=== PATIENT | female | born 1965 | race Caucasian/White ===

== ENCOUNTER → 2016-11-17 | Outpatient (CLI) | payer OTHER ==
[~2016-11-17] MED LIST: GADAVIST IV PRN
--- NOTE | 2016-11-17 12:31 | DIAGNOSTIC IMAGING REPORT ---
Brain MRA HISTORY: NUMBNESS/TINGLING IN FACE TECHNIQUE: 3-D [id number] MRA of the brain was performed without contrast. COMPARISON STUDY: None. FINDINGS: Visualized intracranial internal carotid arteries, distal vertebral arteries, and basilar artery are widely patent. There is no significant stenosis, occlusion, or aneurysm seen within the bilateral ACAs, MCAs, or steward/stewardess third class. IMPRESSION: No significant stenosis, occlusion, or aneurysm within the [place]. Electronically signed by: Emeterio Ayers M.D. 11/17/2016 12:29 PM Dictated Date/Time: 11/17/2016 12:25 PM
--- NOTE | 2016-11-17 12:33 | DIAGNOSTIC IMAGING REPORT ---
MRI OF THE BRAIN WITHOUT AND WITH IV CONTRAST CLINICAL HISTORY: Left-sided head and facial pain. Numbness and tingling. COMPARISON STUDY: No previous studies for comparison. TECHNIQUE: MRI of the brain was performed from the vertex to the skull base utilizing various T1 and T2 weighted sequences. Following the IV administration of 12.5 mL of Gadavist contrast, additional enhanced images were obtained. FINDINGS: Sagittal T1, axial diffusion, proton density and T2 weighted axial, coronal FLAIR, and pre and post axial T1-weighted images were acquired. These were supplemented with post gadolinium coronal T1 weighted images. No intra or extra-axial mass lesions are visualized. Axial diffusion-weighted images reveal no evidence of acute or subacute infarction. There is no evidence of ventricular dilatation. Proton density T2-weighted and FLAIR images reveal no significant intraparenchymal signal abnormalities. There are no abnormal flow voids. There is no evidence of pathologic enhancement. IMPRESSION: Normal MRI of the brain for age Electronically signed by: Piotr Burton M.D. 11/17/2016 12:31 PM Dictated Date/Time: 11/17/2016 12:29 PM
== END | disposition home or self-care (01) ==
LOC: C.MRI 11:05
PROVIDERS: ATTEND Student in an Organized Health Care Education/Training Program
DX: R51 Headache (principal); R20.0 Anesthesia of skin

== ENCOUNTER → 2017-05-12 | Outpatient (CLI) | payer OTHER ==
--- NOTE | 2017-05-12 14:22 | MAMMOGRAPHY REPORT ---
BILATERAL DIGITAL SCREENING MAMMOGRAM TOMOSYNTHESIS WITH CAD: 05/12/2017 CLINICAL HISTORY: Routine screening. Patient has no complaints. TECHNIQUE: Breast tomosynthesis in addition to standard 2D mammography was performed. Current study was also evaluated with a Computer Aided Detection (CAD) system. COMPARISON: Comparison is made to exams dated: 05/08/2016 mammogram, 04/26/2015 mammogram, 04/25/2014 ma mmogram, 04/17/2013 mammogram, 04/15/2012 mammogram, and 04/10/2011 mammogram - [facility] nter. BREAST COMPOSITION: The tissue of both breasts is almost entirely fatty. FINDINGS: No suspicious masses, calcifications, or areas of architectural distortion are noted in ei ther breast. There has been no significant interval change compared to prior exams. IMPRESSION: ACR BI-RADS CATEGORY 1: NEGATIVE There is no mammographic evidence of malignancy. A 1 year screening mammogram is recommended. The pa tient will receive written notification of the results. Approximately 10% of breast cancers are not detected with mammography. A negative mammographic report should not delay biopsy if a clinically suggestive mass is present. Marissa Fontanez M.D. /:05/12/2017 08:49:41 Inside Sales Account Executive: Hilary Mcqueen, [facility] letter sent: Normal 1/2 BI-RADS Code: ACR BI-RADS Category 1: Negative
== END | disposition home or self-care (01) ==
LOC: C.MAMM 08:21
PROVIDERS: ATTEND Obstetrics & Gynecology
DX: Z12.31 Encounter for screening mammogram for malignant neoplasm of breast (principal)

== ENCOUNTER → 2017-07-19 | Outpatient (CLI) | payer OTHER ==
--- NOTE | 2017-07-19 17:04 | DIAGNOSTIC IMAGING REPORT ---
MRI LUMBAR SPINE W/O CONTRAST CLINICAL HISTORY: Low back pain with right leg radiculopathy. TECHNIQUE: Sagittal and axial T1, T2 and STIR images were obtained. COMPARISON STUDY: Outside radiograph dated 04/16/2017 OBSERVATIONS: The vertebral bodies and posterior elements appear intact. There is no abnormal bony signal present to suggest a marrow replacement process. L1-2: No disc protrusions or extrusions. No evidence of spinal canal or neural foraminal compromise. L2-3: No disc protrusions or extrusions. No evidence of spinal canal or neural foraminal compromise. L3-4: There is a circumferential disc bulge. There is slight effacement of the anterior thecal sac. There is no significant foraminal narrowing L4-5: There is a mild circumferential disc bulge. There is no significant spinal or foraminal stenosis. L5-S1: There is a moderate right posterior lateral disc protrusion. The disc material abuts and slightly displaces the right S1 nerve root. The conus medullaris and cauda equina appear normal. IMPRESSION: 1. Moderate right posterior lateral disc protrusion at the L5-S1 level. The disc material appears to impinge on the right S1 nerve root 2. Mild circumferential disc bulges at the L3-4 and L4-5 levels. Electronically signed by: Piotr Burton M.D. 07/19/2017 5:02 PM Dictated Date/Time: 07/19/2017 4:59 PM
== END | disposition home or self-care (01) ==
LOC: C.MRIBC 16:02
PROVIDERS: ATTEND Orthopaedic Surgery Orthopaedic Surgery of the Spine
DX: M51.27 Other intervertebral disc displacement, lumbosacral region (principal)